=== PATIENT | male | born 1960 ===

== ENCOUNTER → 2023-07-27 07:31 | Outpatient (CLI) | payer OTHER, SELFPAY ==
--- NOTE | ~2023-07-27 | MR_ITS ---
EXAMINATION: MR cervical spine wo con DATE: 07/27/2023 08:17 INDICATION: Cervical radiculopathy. Bilateral leg and arm weakness and tingling. TECHNIQUE: Magnetic resonance imaging (MRI) of the cervical spine was performed without intravenous c ontrast. COMPARISON: None FINDINGS: There is 9 degrees levocurvature of cervicothoracic spine. There is 2 mm anterolisthesis of C4 on C5. There are changes of anterior fusion procedure from C5 to T1 with anterior plate and screw s. There is mildly decreased disc height at C3-C4 and moderately decreased disc height at C4-C5. Ther e is increased T2-weighted signal intensity in the spinal cord at C3-C4. The following disc levels ar e specifically discussed: C2-C3: There is a central extrusion. There is mild bilateral uncovertebral joint osteoarthritis. Ther e is severe bilateral facet joint osteoarthritis. There is no neural foraminal stenosis. There is no central canal stenosis. C3-C4: There is a central extrusion. There is moderate right and mild left uncovertebral joint osteoa rthritis. There is severe right and moderate left facet joint osteoarthritis. There is mild bilateral neural foraminal stenosis. There is moderate central canal stenosis with ventral and dorsal indentat ion of the spinal cord. C4-C5: The disc is bulging. There is severe bilateral uncovertebral joint osteoarthritis. There is se vic bilateral facet joint osteoarthritis. There is moderate bilateral neural foraminal stenosis. The re is severe central canal stenosis with ventral and dorsal indentation of the spinal cord and increa sed signal in the cord. C5-C6: There is moderate bilateral uncovertebral joint hypertrophy. There is severe bilateral facet j oint osteoarthritis. There is mild bilateral neural foraminal stenosis. There is mild central canal s tenosis. C6-C7: There is no uncovertebral joint hypertrophy. There is ankylosis of the facet joints without hy pertrophy. There is no neural foraminal stenosis. There is no central canal stenosis. C7-T1: There is severe bilateral uncovertebral joint osteoarthritis. There is severe bilateral facet joint osteoarthritis. There is mild right and moderate left neural foraminal stenosis. There is mild central canal stenosis. IMPRESSION: 1. Myelomalacia at C4-C5. 2. Severe cervical spondylosis. 3. Anterior fusion procedure from C5 to T1. Reviewed, dictated and finalized at location A. [facility]
== END ==
PROVIDERS: PCP Family Medicine; Visit Provider Family Medicine
DX: M47.22 Other spondylosis with radiculopathy, cervical region (principal); Z98.1 Arthrodesis status
CPT/HCPCS: 72141